=== PATIENT | male | born 1970 | race Caucasian/White ===

== ENCOUNTER 2017-07-12 09:45 | Day surgery (SDC) | payer OTHER ==
[~2017-07-12 09:45] MED LIST: LIDOCAINE HCL 1% 5 ML ONE; PROPOFOL 500 MG/50 ML EMU IV ONE
[2017-07-12 12:05] VITALS: BP 115/76; PULSE 69; RESP 20; TEMP 97.5; O2SAT 97
== END 2017-07-12 12:25 | disposition home or self-care (01) | DRG 392 ==
LOC: SURG 09:45
PROVIDERS: ATTEND Surgery
DX: R10.31 Right lower quadrant pain (principal); E11.9 Type 2 diabetes mellitus without complications; K31.9 Disease of stomach and duodenum, unspecified
CPT/HCPCS: 82962; J2704